=== PATIENT | male | born 1995 | race Caucasian/White ===

== ENCOUNTER 2021-02-11 22:04 | Emergency (ER) | payer SELFPAY ==
[~2021-02-11] VITALS: Ht 175.3 cm; Wt 108.9 kg
[2021-02-11 22:09] VITALS: BP 151/90
--- NOTE | 2021-02-11 22:09 | NUR ---
TO BED AMBULATORY
--- NOTE | 2021-02-11 22:10 | NUR ---
PATIENT PRESENTS TO ED WITH RT TOE NAIL PAIN C/O INGROWN. PT STATES "I HAVE BEEN HAVING THIS EVERY TIME, I HAVE A 6/10 INGROWN TOE NAIL PAIN THAT DOES NOT RADIATE TO EVERYWHERE." DENIES N/V/D; SKIN IN THE TOE NAIL IS RED, AND SWOLLEN; AAOX4 WITH EVEN AND STEADY GAIT; LUNGS CLEAR BL; HR EVEN AND REGULAR; PT DENIES ANY FEVER, CP, SOB, OR COUGH AT THIS TIME; PATIENT STATES PAIN OF 6/10 AT THIS TIME; VSS; PATIENT POSITIONED FOR COMFORT; HOB ELEVATED; BEDRAILS UP X2; BED DOWN. ER MD MADE AWARE OF PT STATUS. NKA PMH: DENIES
[2021-02-11] MEDS ORDERED: cephALEXin 500 MG CAP PO ONE (22:20)
[2021-02-11] MEDS ORDERED: LIDOCAINE 2% 1000 MG/50 ML VIAL INJ ONE (22:20)
[2021-02-11] MEDS ORDERED: CEPH-588 PO (22:47)
[2021-02-11] MEDS ORDERED: NAPR-54 PO (22:47)
--- NOTE | 2021-02-11 22:55 | NUR ---
ORTHO SHOE PLACED ON PTS RIGHT FOOT, PTS PMSC WNL
[2021-02-11 22:57] VITALS: BP 151/90
--- NOTE | 2021-02-11 23:00 | NUR ---
Patient discharged with v/s stable. Written and verbal after care instructions given and explained. Patient alert, oriented and verbalized understanding of instructions. Ambulatory with steady gait. All questions addressed prior to discharge. ID band removed. Patient advised to follow up with PMD. Rx of NAPROXEN AND KEFLEX given. Patient educated on indication of medication including possible reaction and side effects. Opportunity to ask questions provided and answered.
== END 2021-02-11 23:00 | disposition home or self-care (01) ==
LOC: MED 22:04
DX: L60.0 Ingrowing nail (principal); E78.00 Pure hypercholesterolemia, unspecified
CPT/HCPCS: 11730; 99284; J2001

== ENCOUNTER 2021-02-14 20:24 | Emergency (ER) | payer SELFPAY ==
[~2021-02-14] VITALS: Ht 172.7 cm; Wt 119.7 kg
[~2021-02-14 20:24] MED LIST: CEPH-588 PO; NAPR-54 PO
[2021-02-14 20:32] VITALS: BP 145/95
--- NOTE | 2021-02-14 20:35 | NUR ---
PATIENT AMBUALTED TO LOBBY WITH STEADY GAIT.
--- NOTE | 2021-02-14 21:59 | NUR ---
NATALIED AT [facility] FOR MEDICAL EVALUATION.
[2021-02-14] MEDS ORDERED: CEPH-588 PO (22:02)
[2021-02-14] MEDS ORDERED: NAPR-54 PO (22:02)
[2021-02-14] MEDS ORDERED: BACITRACIN OINT 500 UNITS/GM PKT TP ONE ×2 (22:05→22:06)
--- NOTE | 2021-02-14 22:14 | NUR ---
PT WOUND COVERED WITH GAUZE AND WRAPPED WITH COFLEX TAPE AFTER BACITRACIN APPLIED
[2021-02-14 22:20] VITALS: BP 145/95
--- NOTE | 2021-02-14 22:20 | NUR ---
Patient discharged with v/s stable. Written and verbal after care instructions given and explained. Patient verbalized understanding. Ambulatory with steady gait. All questions addressed prior to discharge. Advised to follow up with PMD.
== END 2021-02-14 22:20 | disposition home or self-care (01) ==
LOC: MED 20:24
DX: L60.0 Ingrowing nail (principal); Z79.899 Other long term (current) drug therapy
CPT/HCPCS: 99283